=== PATIENT | male | born 1990 | race Caucasian/White ===

== ENCOUNTER 2017-09-30 02:25 | Emergency (ER) | payer BC, OTHER ==
[~2017-09-30] VITALS: Ht 193 cm; Wt 117.9 kg
--- NOTE | 2017-09-30 02:33 | NUR ---
PT AMBULATORY TO ER BED 11. "MY FACE HAS BEEN NUMB AND PRESSURE IN MY HEAD FOR 2 HOURS". PT PLACED ON [employer]. VSS/RESP EVEN UNLABORED/NAD NOTED/SKIN WARM AND DRY/AFEBRILE/DENIES N-V-D/AOX4. AWAITNG MD JUNIOR.
[2017-09-30] MEDS ORDERED: IBUPROFEN 600 MG TABLET PO ONE ×2 (02:47→03:00)
[2017-09-30] MEDS ORDERED: ACETAMINOPHEN ES 500 MG TABLET ONE (02:47)
--- NOTE | 2017-09-30 02:56 | NUR ---
PT TO CT VIA STRETCHER.
[2017-09-30] MEDS ORDERED: ACETAMINOPHEN ES 500 MG TABLET PO ONE (03:00)
--- NOTE | 2017-09-30 03:12 | NUR ---
PT BACK FROM CT.
--- NOTE | 2017-09-30 04:01 | NUR ---
Patient discharged to home in stable condition. Written and verbal after care instructions given. Patient verbalizes understanding of instruction. Patient is awake and alert to self, day, and place. Patient ambulatory with a steady gait.
[2017-09-30 04:02] VITALS: BP 142/84
== END 2017-09-30 04:03 | disposition home or self-care (01) ==
LOC: ER 02:28
DX: R51 Headache (principal); I10 Essential (primary) hypertension; F17.200 Nicotine dependence, unspecified, uncomplicated; Z98.890 Other specified postprocedural states; Z88.2 Allergy status to sulfonamides; Z88.1 Allergy status to other antibiotic agents
CPT/HCPCS: 70450; 82962; 99284; A4606; Z7610